=== PATIENT | female | born 1980 | race Caucasian/White ===

== ENCOUNTER 2021-10-19 10:18 | Emergency (ER) | payer OTHER, SELFPAY ==
[2021-10-19] VITALS (7 sets, daily range): BP systolic 129–178; BP diastolic 76–91; PULSE 65–120; RESP 13–20; TEMP 36.1–36.6; O2SAT 96–100; BMI 27.6
--- NOTE | 2021-10-19 11:02 | EKG12_ITS ---
Test Reason : CHEST TIGHTNESS Blood Pressure : / mmHG Vent. Rate : 095 BPM Atrial Rate : 095 BPM P-R Int : 142 ms QRS Dur : 082 ms QT Int : 372 ms P-R-T Axes : 039 009 054 degrees QTc Int : 467 ms Normal sinus rhythm Possible Inferior infarct , age undetermined Abnormal ECG Confirmed by CORBY ABDULLAHI, SARA ([id number]), pictures editor NEHA JOLLY ([id number]) on 10/22/2021 1:57:40 PM Referred By: B Confirmed By:SARA TAVAREZ MD
--- NOTE | 2021-10-19 11:02 | RAD_ITS ---
STUDY: X-RAY CHEST REASON FOR EXAM: Female, 41 years old. 2 day history of chest pressure and chest pain. TECHNIQUE: Single AP portable view of the chest. COMPARISON: None. FINDINGS: EKG electrodes are seen. Calcified granulomas in the right hemithorax. There is no demonstrated pleural abnormality. Normal size heart. Calcified right hilar lymph nodes. Normal visualized pulmonary arteries. Normal visualized aortic arch and descending thoracic aorta. Normal visualized thoracic spine. Normal visualized ribs, clavicles, and shoulders. There is no demonstrated abnormality of the visualized soft tissue structures of the upper abdomen. RAD/Chest 1 View (Portable) IMPRESSION: No acute abnormality is seen. Electronically Signed: Pj Salinas MD at 12:03 EDT ,
[2021-10-19 11:21] LABS: Absolute Lymphocyte Count 1.64 X10^3/uL (0.83-4.51); Absolute Neutrophil Count 6.8 X10^3/uL (2.0-7.7); Basophil# 0.05 X10^3/uL; Basophil% 0.5 % (0-1); Eosinophil# 0.16 X10^3/uL; Eosinophils% 1.7 % (0-5); Hematocrit 40.5 % (37-47); Hemoglobin 13.1 g/dL (12.0-15.0); Lymphocyte # 1.64 X10^3/ul (0.83-4.51); Lymphocyte % 17.6 % (19-41); Mean Corp Hgb Conc 32.3 g/dL (32-36); Mean Corpuscular Hgb 30.3 pg (27.0-32.0); Mean Corpuscular Volume 93.5 fL (81-99); Mean Platelet Vol. 10.4 fl (6.2-12.0); Monocyte# 0.66 X10^3/uL; Monocyte% 7.1 % (0-10); NRBC Flagged by Analyzer 0 % (0-5); Neutrophil # 6.77 X10^3/uL (2.7-7.7); Neutrophil % 72.6 % (47-70); Platelet Count 349 K/mm3 (150-450); RBC Distribution Width CV 12.8 % (11.6-14.6); RBC Distribution Width SD 44.2 fl (35.1-43.9); Red Blood Count 4.33 M/mm3 (4.2-5.4); White Blood Count 9.3 K/mm3 (4.4-11.0)
[2021-10-19] MEDS: Aspirin 81 MG TAB.CHEW 324 MG PO (11:28)
[2021-10-19] MEDS: Nitroglycerin SL (ED/IMG/CATH) 0.4 MG TABLET SL (11:29)
[2021-10-19 11:37] LABS: Anion Gap 4 (5-15); BUN 12 mg/dL (7-18); BUN/Creat Ratio 18.8 RATIO (10-20); Calcium,Total 9.2 mg/dL (8.5-10.1); Chloride 107 mmol/L (98-107); Creatinine, Serum 0.64 mg/dL (0.55-1.02); EST Glomerular Filtration Rate 109 mL/min (>60); Est Glom Filt Rate - Afr Amer 132 mL/min (>60); Estimated Creatinine Clearance 94.72 ml/min; Glucose 83 mg/dL (74-106); Potassium 3.9 mmol/L (3.5-5.1); Sodium Level 140 mmol/L (136-145); Troponin-I HS (w/2H Reflex) 3 pg/mL (3.0-54.0)
[2021-10-19 11:40] LABS: D-Dimer Quantitative (DVT/PE) < 0.27 FEU/ug/m (0.27-0.49)
[2021-10-19 13:16] LABS: Reflex Troponin-HS? (from REC) Y
[2021-10-19 13:56] LABS: Troponin-I HS 7 pg/mL (3.0-54.0)
--- NOTE | 2021-10-19 14:13 | ED.VIS.CHEST ---
HPI History of Present Illness Chief Complaint: Chest Pain Informant: patient Onset/Context/Timing Onset: Yesterday Activity at onset: gradual Timing: Intermittent Quality: Positive for Pressure Location: Substernal Worsened By: Exertion Relieved By: Rest Associated Symptoms: Positive for Diaphoresis, Dyspnea, Cough, Lightheadedness and Palpitations; Negative for Nausea, Vomiting, Fever or Acid Reflux Narrative Narrative: Patient presents with chest pain that began yesterday. Patient states it is gradually getting worse. Patient describes it as a pressure. Patient states it is over the substernal area. Patient states it has been intermittent since yesterday. Patient states it is worse with exertion and better with rest. Patient admits to some diaphoresis and shortness of breath. Patient also admits to a cough and some lightheadedness. Patient denies any fevers or chills. Patient denies any nausea or vomiting. CVD Risk Factors: Positive for Hypertension; Negative for Diabetes, Hypercholesterolemia, Family History 1' </=55 or Smoking PE Risk Factors: Negative for Recent Travel/Surgery, Recent Immobilization, Prior DVT or PE or Cancer [facility] Medical History Anxiety Bipolar 2 disorder HTN (hypertension) Home Medications Lactobacillus acidophilus 10 billion cell capsule (Probiotic) 2,000 cell PO DAILY 10/19/21 [History Last Taken Unknown] aripiprazole 5 mg tablet 5 mg PO DAILY 10/19/21 [History Last Taken Unknown] duloxetine 60 mg capsule,delayed release 60 mg PO DAILY 10/19/21 [History Last Taken Unknown] hydroxychloroquine 200 mg tablet 400 mg PO DAILY 10/19/21 [History Last Taken Unknown] hydroxyzine HCl 25 mg tablet 25 mg PO TID 10/19/21 [History Last Taken Unknown] meloxicam 15 mg tablet 15 mg PO DAILY 10/19/21 [History Last Taken Unknown] metoprolol succinate 50 mg capsule sprinkle, ext. release 24 hr 50 mg PO DAILY 10/19/21 [History Last Taken Unknown] multivitamin 1 tab DAILY 10/19/21 [History Last Taken Unknown] omeprazole 40 mg capsule,delayed release 40 mg PO DAILY 10/19/21 [History Last Taken Unknown] paroxetine HCl 20 mg tablet 20 mg PO DAILY 10/19/21 [History Last Taken Unknown] Allergy/AdvReac Type Severity Reaction Status Date / Time Penicillins Allergy Other Verified 10/19/21 10:20 Surgical History H/O: hysterectomy Hx of appendectomy Hx of tonsillectomy Social History Smoking Status: Former smoker ROS ROS ED Constitutional Constitutional ED: Denies chills or fever(s) Eyes Eyes: Denies blurry vision or change in vision ENT ENT ED: Denies rhinorrhea or sore throat Cardiovascular Cardiovascular: Reports chest pain and palpitations Respiratory/Chest Respiratory/Chest: Reports cough and dyspnea Gastrointestinal Gastrointestinal: Denies abdominal pain, nausea or vomiting Genitourinary Genitourinary ED: Denies dysuria or hematuria Musculoskeletal Musculoskeletal: Denies back pain or neck pain Integumentary Denies abscess or rash Neurologic Neurologic: Reports headache(s); Denies weakness Allergic/Immunologic Allergic/Immunologic ED: Denies mouth swelling or urticaria EXAM Physical Exam Const Vital Signs: 10/19/21 10:19 10/19/21 10:52 10/19/21 10:53 Temperature 96.9 F L Temperature Source Temporal Pulse Rate 120 H 84 Respiratory Rate 20 H 16 Respiratory Effort Short of Breath Blood Pressure 178/91 H 138/76 H Blood Pressure Mean 120 96 Pulse Ox 100 100 Oxygen Delivery Method Room Air Room Air 10/19/21 11:11 10/19/21 11:29 10/19/21 12:28 Temperature Temperature Source Pulse Rate 88 65 Respiratory Rate 18 Respiratory Effort Blood Pressure 140/82 H 129/85 H Blood Pressure Mean 99 Pulse Ox 96 Oxygen Delivery Method Room Air Room Air 10/19/21 13:14 10/19/21 14:04 Temperature 97.9 F Temperature Source Oral Pulse Rate 78 83 Respiratory Rate 13 13 Respiratory Effort Blood Pressure 133/85 H 139/90 H Blood Pressure Mean 101 106 Pulse Ox 99 98 Oxygen Delivery Method Room Air Room Air Positive well nourished and well developed General Appearance ED: well developed HEENT normocephalic and atraumatic Eyes PERRL and EOMs intact bilaterally Neck supple and no JVD Chest Wall palpation of chest normal Resp normal respiratory effort and clear to auscultation bilaterally Effort and Inspection: Negative for respiratory distress Cardio regular rate, regular rhythm and no murmurs GI normal to inspection, nondistended, normoactive bowel sounds, soft to palpation, non-tender and non-distended Extremity normal to inspection General Extremety ED: Negative for edema or tenderness General Extremity: Negative for edema Neuro oriented x3, CN's II-XII intact bilaterally and no sensory deficits noted Sensorium / Orientation: awake and alert Motor Exam: strength 5/5 throughout Psych mental status grossly normal Heart Score History: Moderately Suspicious ECG: Normal Age: </= 45 years Risk Factors: 1 or 2 Risk Factors Troponin: </= Normal Limit Score: 2 MDM MDM MDM Narrative Medical decision making narrative: Patient was given aspirin and 1 sublingual nitroglycerin tablet. EKG was obtained. On my interpretation, it showed a normal sinus rhythm with a rate of 95. [place] interval, QRS interval, and QTc intervals were all normal. [place] was normal. There are no acute ST or T wave changes. Portable 1 view chest x-ray was obtained. On my interpretation, lung baird are clear. There is normal cardiac silhouette. Bony thorax is normal. There is no acute process noted. Radiologist also interpreted the x-ray and agrees. CBC was within normal limits. D-dimer was normal. Basic metabolic profile was obtained and was within normal limits. High-sensitivity troponin was normal. 2-hour repeat high-sensitivity troponin was normal. Patient is feeling better on reevaluation. Patient has a HEART score of 3. Patient was advised that this is low risk for acute cardiac event. Patient was instructed to follow-up with her primary care physician in 5 to 7 days for reevaluation. Patient was instructed return if worse in any way. Patient understood and was agreeable with the plan. All questions were answered. Lab Data Attestation: I reviewed the patient's lab results. Labs: Laboratory Results - last 24 hr 10/19/21 10/19/21 10/19/21 10:45 10:45 10:45 WBC 9.3 RBC 4.33 Hgb 13.1 Hct 40.5 MCV 93.5 MCH 30.3 MCHC 32.3 RDW Std Deviation 44.2 H RDW Coeff of Rei 12.8 Plt Count 349 MPV 10.4 Immature Gran % (Auto) 0.500 Neut % (Auto) 72.6 H Lymph % (Auto) 17.6 L Imperial % (Auto) 7.1 Eos % (Auto) 1.7 Baso % (Auto) 0.5 Absolute Neuts (auto) 6.8 Absolute Lymphs (auto) 1.64 Nucleated RBC % 0 D-Dimer Quant (PE/DVT) < 0.27 L Sodium 140 Potassium 3.9 Chloride 107 Carbon Dioxide 29.0 Anion Gap 4 L BUN 12 Creatinine 0.64 Estim Creat Clear Calc 94.72 Est GFR (MDRD) Af Amer 132 Est GFR (MDRD) Non-Af 109 BUN/Creatinine Ratio 18.8 Glucose 83 Calcium 9.2 Troponin I High Sens 3 10/19/21 13:30 WBC RBC Hgb Hct MCV MCH MCHC RDW Std Deviation RDW Coeff of Rei Plt Count MPV Immature Gran % (Auto) Neut % (Auto) Lymph % (Auto) Imperial % (Auto) Eos % (Auto) Baso % (Auto) Absolute Neuts (auto) Absolute Lymphs (auto) Nucleated RBC % D-Dimer Quant (PE/DVT) Sodium Potassium Chloride Carbon Dioxide Anion Gap BUN Creatinine Estim Creat Clear Calc Est GFR (MDRD) Af Amer Est GFR (MDRD) Non-Af BUN/Creatinine Ratio Glucose Calcium Troponin I High Sens 7 Radiography Chest X-Ray - ED: 1 View, Read by ED Physician, Read by Radiologist, Normal and No Acute Disease Diagnostic Testing: Clinical Impression(s) from Imaging Studies Chest X-Ray 10/19/21 11:02 IMPRESSION: No acute abnormality is seen. Electronically Signed: Pj Salinas MD at 12:03 EDT Reading Location ID and State: [facility] / [place] , Service support , EKG Initial EKG: Attestation: I personally reviewed and interpreted this EKG as follows: Interpretation: Sinus Rhythm (95) and No Acute Injury Pattern Prior EKG tracings: not available for review Prior: No Prior Discharge Plan Triage Chief Complaint: Chest Pain ED Provider: Hernando Peñaloza Dx/Rx/DC Orders Clinical Impression: Chest pain of uncertain etiology, Hypertension Instructions: ED Chest Pain, Uncertain Cause Prescriptions: No Action meloxicam 15 mg tablet 15 mg PO DAILY Label Comments: TAKE 1 TABLET BY MOUTH EVERY DAY WITH FOOD omeprazole 40 mg Capsule,Delayed Release(Dr/Ec) 40 mg PO DAILY paroxetine HCl 20 mg tablet 20 mg PO DAILY Label Comments: Take 1 tablet by mouth once daily. hydroxyzine HCl 25 mg tablet 25 mg PO TID Label Comments: TAKE 1 TABLET BY MOUTH THREE TIMES DAILY NEEDED FOR ITCHING/RASH hydroxychloroquine 200 mg tablet 400 mg PO DAILY Label Comments: Take 2 tablets by mouth once daily. aripiprazole 5 mg tablet 5 mg PO DAILY Label Comments: TAKE 1 TABLET BY MOUTH DAILY duloxetine 60 mg capsule,delayed release(DR/EC) 60 mg PO DAILY Label Comments: Take 1 capsule by mouth once daily. Probiotic 10 billion cell Capsule 2,000 cell PO DAILY metoprolol succinate 50 mg Capsule,Sprinkle,Er 24hr 50 mg PO DAILY multivitamin 1 tab DAILY Primary Care Provider: Terry Juan Referrals: Terry Juan MD [Primary Care Provider] - 5-7 Days Disposition Disposition: Home, Self Care
== END 2021-10-19 14:49 | disposition home or self-care (01) ==
PROVIDERS: Emergency Provider Emergency Medicine; PCP Family Medicine; Visit Provider Emergency Medicine
DX: R07.9 Chest pain, unspecified (principal); I10 Essential (primary) hypertension; Z79.899 Other long term (current) drug therapy; Z87.891 Personal history of nicotine dependence
CPT/HCPCS: 71045; 80048; 84484; 85025; 85379; 93005; 99284; A4216